=== PATIENT | male | born 1970 | race Caucasian/White ===

== ENCOUNTER → 2016-09-27 | Outpatient (CLI) | payer BC ==
--- NOTE | 2016-09-27 12:56 | MR ---
EXAMINATION TYPE: MR knee LT wo con DATE OF EXAM: 09/27/2016 7:44 AM COMPARISON: NONE HISTORY: Left knee pain TECHNIQUE: Multiplanar, multisequence imaging of the left knee is performed without IV contrast. FINDINGS: MEDIAL MENISCUS: There is some very minimal increased signal along the posterior aspect posterior hor n radial meniscus which can be related to degenerative change or internal derangement. Anterior horn medial meniscus appears normal. LATERAL MENISCUS: Anterior and posterior horns are intact without tear. CRUCIATE LIGAMENTS: The anterior and posterior cruciate ligaments are intact and unremarkable. COLLATERAL LIGAMENTS: The medial collateral ligament and lateral collateral ligament complex are inta ct and unremarkable. EXTENSOR MECHANISM: Visualized quadriceps and patellar tendons are intact. EFFUSION: No significant suprapatellar joint effusion. POPLITEAL CYST: No popliteal/franklin cyst. TRICOMPARTMENT SPACES: There is minimal narrowing of medial and lateral compartment joint spaces. The re is thinning of the articular cartilage. CARTILAGE: Thinning of the medial compartment articular cartilage. Milder thinning is at the lateral compartment joint space. Small amount of increased signal is in the posterior patellar space. Surface fracture of the articular cartilage is not excluded. This does not extend to the posterior patellar bone. BONE MARROW SIGNAL: No focal abnormal marrow signal is appreciated. OTHER: No additional significant abnormality is appreciated. IMPRESSION: 1. Mild degenerative change or internal derangement posterior horn medial meniscus. 2. Osteoarthritic degenerative change. 3. Possible contusion or fracture of the surface of the posterior patellar cartilage. This is incompl etely without extension through the articular cartilage of the patella. This is a wider section than typical identified with chondromalacia.
== END | disposition home or self-care (01) ==
LOC: RADMRIMAIN 07:01
PROVIDERS: ATTEND Orthopaedic Surgery
DX: M17.12 Unilateral primary osteoarthritis, left knee (principal)

== ENCOUNTER → 2017-02-21 | Outpatient (CLI) | payer BC ==
--- NOTE | 2017-02-21 13:34 | FL ---
EXAMINATION TYPE: FL UGI air w esophagus DATE OF EXAM: 02/21/2017 CLINICAL INDICATION: 46-year-old male with dysphagia, sensation of food getting stuck in the upper es ophagus for 1 year. History of reflux as well. COMPARISON: None Total Flouroscopy Time: 3 minutes Total images: 29 FINDINGS: The swallowing mechanism is normal and hypopharyngeal anatomy is preserved. The cervical and thoracic portions have a normal course and normal motility. There is a small hiatal hernia and moderate to severe gastroesophageal reflux when the patient is sup ine and turns. There is slight caliber narrowing of the distal esophagus and some corresponding mucosal irregularity . The stomach and duodenum are free of any persistent filling defect and demonstrate a normal mucosal p attern. IMPRESSION: 1. Small hiatal hernia with moderate to severe gastroesophageal reflux. 2. Some mucosal irregularity of the distalmost esophagus could be secondary to esophagitis. Given sli ght narrowing here as well with possible mild stricture, consider direct visualization to exclude a m ucosal lesion/neoplasm. 3. Otherwise, normal upper GI examination.
== END | disposition home or self-care (01) ==
LOC: RADFLWHC 09:21
PROVIDERS: ATTEND Internal Medicine
DX: K44.9 Diaphragmatic hernia without obstruction or gangrene (principal); K21.9 Gastro-esophageal reflux disease without esophagitis
CPT/HCPCS: 74246

== ENCOUNTER 2017-03-28 09:15 | Day surgery (SDC) | payer BC ==
[2017-03-26 14:06] VITALS: BMI 30.2
--- NOTE | 2017-03-27 15:23 | HP ---
HISTORY AND PHYSICAL REASON FOR ADMISSION: Surgery is 03/28/2017 HISTORY OF PRESENT ILLNESS: Yoni Noriega is a 46-year-old patient seen with progressive left knee pain. We discussed treatment options. He elected to proceed with arthroscopy. Consent was obtained. PAST MEDICAL HISTORY: Hypertension. PAST SURGICAL HISTORY: Noncontributory. MEDICATIONS ARE: None reported. SOCIAL HISTORY: Patient denies tobacco use. PHYSICAL EXAMINATION: Evaluation left knee range of motion is 0-130 degrees. Tenderness medial joint line. Positive medial Lj's. Ligaments are stable. Hip rotation is without pain. Distal neurovascular exam is intact. RADIOGRAPHS: Of the left knee revealed mild osteoarthritis. MRI left knee revealed abnormal signal from the medial meniscus as well as some chondromalacia. IMPRESSION: Internal derangement left knee with probable meniscal tear. PLAN: Left knee arthroscopy with partial meniscectomy and debridement. Surgery 03/28/2017. MMODL / IJN: [id number] /
[~2017-03-28 09:15] MED LIST: DEXAMETHASONE SOD PHOSPHATE 10 MG/ML 1 ML VIAL IV ONE; HYDROmorphone 1 MG/ML 1 ML SYRINGE IVP PRN; LACTATED RINGERS 1,000 ML IV SCH; MIDAZOLAM 2 MG/2 ML VIAL IV PRN; ONDANSETRON 4 MG/2 ML VIAL IVP ONE; SCOPOLAMINE 1.5MG/72HR PATCH TRANSDERM ONE; ceFAZolin IN SWFI 2 GM/20 ML SYRINGE IVP ONE
[2017-03-28] MEDS ORDERED: LIDOCAINE 1% 20 ML VIAL (10MG/ML) FOR IV START INTRADERMA ONE (09:27)
[2017-03-28] MEDS ORDERED: BUPIVACAINE (PF) 0.25% 30 ML VIAL INTRAARTIC ONE (10:00)
[2017-03-28] MEDS ORDERED: ePHEDrine SULFATE/0.9% NACL/PF 50 MG/5 ML SYRINGE IV ONE (10:00)
[2017-03-28] MEDS ORDERED: KETOROLAC 30 MG/ML 1 ML VIAL ONE (10:00)
[2017-03-28] MEDS ORDERED: fentaNYL (PF) 50 MCG/ML 2 ML AMP ONE (10:00)
[2017-03-28] MEDS ORDERED: LIDOCAINE 1% INJ 10MG/ML (20 ML MDV) ONE (10:00)
[2017-03-28] MEDS ORDERED: MIDAZOLAM 2 MG/2 ML VIAL ONE (10:00)
[2017-03-28] MEDS ORDERED: PROPOFOL 10 MG/ML 20 ML VIAL IV ONE (10:00)
[2017-03-28] MEDS ORDERED: SUCCINYLCHOLINE CHLORIDE 100 MG/5 ML SYR IV ONE (10:00)
[2017-03-28] MEDS ORDERED: SODIUM CHLORIDE 0.9% 20 ML with ceFAZolin 2 GM IV ONE ×2 (10:19)
--- NOTE | 2017-03-28 10:53 | P.OP ---
Date of Procedure: 03/28/17 Preoperative Diagnosis: Internal derangement left knee Postoperative Diagnosis: 1. Tear medial meniscus left knee 2. 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 Medial plica left knee 5. Reactive synovitis medial and suprapatellar compartments left knee Procedure(s) Performed: 1. Arthroscopic partial medial meniscectomy left knee 2. Arthroscopic chondroplasty lateral femoral condyle left knee 3. Arthroscopic chondroplasty patella left knee 4. Arthroscopic resection medial plica left knee 5. Arthroscopic partial synovectomy medial and suprapatellar compartments left knee Implants: None Anesthesia: DANNYA, local Surgeon: Olegario Freeman Estimated Blood Loss (ml): 5 Pathology: none sent Condition: stable Disposition: PACU Indications for Procedure: 46-year-old patient seen with progressive left knee pain. After we discussed treatment options, he elected to proceed with arthroscopy. Operative Findings: see description of procedure Description of Procedure: Patient was taken to the operative suite. Patient underwent a general anesthetic by the department of anesthesia. Patient was given preoperative antibiotics. The left lower extremity was placed in a well-padded arthroscopic leg guardado. The left leg was prepped and draped in the normal sterile orthopedic fashion. A lateral parapatellar and suprapatellar incision was made. Trochars were inserted. Arthroscopy was initiated. Suprapatellar pouch revealed reactive synovitis. The patellofemoral joint appeared to articulate congruently. There was an area of grade 1/2 chondromalacia of the patella. The scope was guided into the medial gutter. There was a medial plica which seem to impinge along the medial femoral condyle with range of motion. The scope was then guided into the medial compartment. A medial parapatellar incision was made. Trocar inserted followed by probe. There was a small radial tear posterior horn medial meniscus. Some reactive synovitis noted anteriorly. The femoral condyle and tibial plateau were unremarkable. I performed a partial medial meniscectomy down to stable tissue. I performed a partial synovectomy. The residual meniscus was stable. Scope and probe were then guided into the intercondylar notch. Cruciates were identified, probed and found to be stable. The scope and probe were then guided into lateral compartment. The lateral meniscus was probed and found to be stable with no tear evident. There was an area of grade 1 chondromalacia weightbearing surface lateral femoral condyle with a small osteochondral tear. No reactive synovitis or loose bodies. I performed a chondroplasty lateral femoral condyle down to stable tissue. The residual osteochondral surface was stable. The scope was in guided back into the suprapatellar compartment. I introduced a motorized shaver into the super patellar compartment. I performed a chondroplasty of the patella down to stable tissue. I resected that medial femoral plica and performed a partial synovectomy. Shaver was removed. With range of motion and there was good clearance of the medial femoral condyle with complete resection of the plica. Instruments were now removed from the joint. The joint was infiltrated with .25% Marcaine. Steri-Strips were applied to the portal sites. Sterile dressings were applied. The patient was placed into a ANNABEL hose. No tourniquet was utilized. The patient was awakened, transferred to a bed and taken to recovery stable satisfactory condition.
[2017-03-28 10:55] VITALS: TEMP 97.4
[2017-03-28 12:35] VITALS: BP 136/83; PULSE 82; RESP 18
== END 2017-03-28 12:51 | disposition home or self-care (01) ==
LOC: OR 09:15
PROVIDERS: ATTEND Orthopaedic Surgery
DX: S83.242A Other tear of medial meniscus, current injury, left knee, initial encounter (principal); M22.42 Chondromalacia patellae, left knee; M67.52 Plica syndrome, left knee; M65.9 Synovitis and tenosynovitis, unspecified; K21.9 Gastro-esophageal reflux disease without esophagitis; X58.XXXA Exposure to other specified factors, initial encounter; Z79.899 Other long term (current) drug therapy
CPT/HCPCS: 29881; J2250; J1100; J0690; J2405; J2001; J3010; J1885; J0330; J2704